=== PATIENT | male | born 1955 | race Caucasian/White ===

== ENCOUNTER → 2023-06-06 11:44 | Outpatient (REF) | payer MEDICARE, OTHER, SELFPAY | LOC: PAVMRI 11:44 | PROVIDERS: ATTENDING PHYSICIAN Physician Assistant Medical | DX: M51.36 Other intervertebral disc degeneration, lumbar region (principal); M54.31 Sciatica, right side | CPT/HCPCS: 72148 ==

== ENCOUNTER → 2024-03-05 11:15 | Outpatient (REF) | payer MEDICARE, OTHER, SELFPAY | LOC: RAD 11:15 | PROVIDERS: ATTENDING PHYSICIAN Student in an Organized Health Care Education/Training Program | DX: R07.81 Pleurodynia (principal) | CPT/HCPCS: 71111 ==

== ENCOUNTER → 2024-06-04 10:47 | Outpatient (REF) | payer MEDICARE, OTHER, SELFPAY | LOC: RAD 10:47 | PROVIDERS: ATTENDING PHYSICIAN Physician Assistant Medical | DX: S22.32XD Fracture of one rib, left side, subsequent encounter for fracture with routine healing (principal); M89.9 Disorder of bone, unspecified; Z79.899 Other long term (current) drug therapy; M85.811 Other specified disorders of bone density and structure, right shoulder | CPT/HCPCS: 77080 ==